=== PATIENT | female | born 1985 | race Caucasian/White ===

== ENCOUNTER 2017-03-07 20:26 | Emergency (ER) | payer MEDICAID ==
[~2017-03-07] VITALS: Ht 167.6 cm; Wt 64.0 kg
[2017-03-07 20:28] VITALS: Ht 167.6 cm; Wt 64.0 kg
--- NOTE | 2017-03-07 23:01 | ERD ---
ER Documentation Chief Complaint Date/Time DATE: 03/07/17 TIME: 22:59 Chief Complaint 6 weeks , pelvic pain, back pain HPI 6 week with vaginal bleeding and back pain that started last night. pt reports bleeding with urination. not using a claus-pad, denies dysuria. denies N/ V C2D4-56 ROS All systems reviewed and are negative except as per history of present illness. Allergies Allergies: Coded Allergies: No Known Allergy (Unverified , 03/07/17) PMhx/Soc Medical and Surgical Hx: pt denies Medical Hx, pt denies Surgical Hx Hx Alcohol Use: No Hx Substance Use: No Hx Tobacco Use: No Smoking Status: Never smoker Physical Exam Vitals Vital Signs Date Time Temp Pulse Resp B/P Pulse Ox O2 Delivery O2 Flow Rate FiO2 03/07/17 20:28 98.0 85 20 111/62 100 Physical Exam Const: Well-nourished well-appearing well-hydrated female no acute distress Head: Eyes: ENT: Normal External Ears, Nose and Mouth Mucous membranes moist Neck: . Resp: Cardio: Abd: Soft, non tender, non distended.No pelvic tenderness, no CVA tenderness. Skin: Back: Ext: Neur: Awake and alert Psych: Normal Mood and Affect Result Diagram: 03/07/17 9714 Results 24 hrs Laboratory Tests Test 03/07/17 23:39 White Blood Count 8.010^3/ul Red Blood Count 3.8410^6/ul Hemoglobin 12.5g/dl Hematocrit 37.5% Mean Corpuscular Volume 97.7fl Mean Corpuscular Hemoglobin 32.6pg Mean Corpuscular Hemoglobin Concent 33.3g/dl Red Cell Distribution Width 12.8% Platelet Count 07120^3/UL Mean Platelet Volume 10.5fl Neutrophils % 69.0% Lymphocytes % 23.5% Monocytes % 6.1% Eosinophils % 0.5% Basophils % 0.5% Nucleated Red Blood Cells % 0.0/100WBC Neutrophils # (Manual) 5.510^3/ul Lymphocytes # 1.910^3/ul Monocytes # 0.510^3/ul Eosinophils # 0.010^3/ul Basophils # 0.010^3/ul Nucleated Red Blood Cells # 0.010^3/ul Urine Color YELLOW Urine Clarity SLIGHTLY CLOUDY Urine pH 5.0 Urine Specific [place] 1.032 Urine Ketones TRACEmg/dL Urine Nitrite NEGATIVEmg/dL Urine Bilirubin NEGATIVEmg/dL Urine Urobilinogen 2+mg/dL Urine Leukocyte Esterase NEGATIVELeu/ul Urine Microscopic RBC 7/HPF Urine Microscopic WBC 1/HPF Urine Squamous Epithelial Cells FEW/HPF Urine Calcium Oxalate Crystals FEW/HPF Urine Mucus MANY/HPF Urine Hemoglobin NEGATIVEmg/dL Urine Glucose NEGATIVEmg/dL Urine Total Protein NEGATIVEmg/dl Beta HCG, Quantitative 3664.7mIU/ml Urinalysis negative for evidence of infection, U hCG normal for a 6 week WBC is normal no evidence of anemia or acute infection.. Procedures/MDM PROCEDURE: ULTRASOUND OBSTETRICAL CLINICAL INDICATION: 31-year-old female with vaginal bleeding. TECHNIQUE: Multiple sonographic images of the pelvis were obtained. The images were reviewed on a PACS workstation. COMPARISON: None. FINDINGS: There is a single intrauterine gestation. There is a large subchorionic hemorrhage measuring approximately 0.5 x 1.8 x 1.3 cm. The mean sac diameter is 0.89 cm. This yields an estimated gestational age of 5 weeks and 3 days. The estimated date of delivery is November 04, 2017. There is a yolk sac present. There is no evidence for pole. There is no evidence for free fluid. The right ovary has a normal echotexture and measures 2.5 x 1.4 x 2.0 cm. The left ovary has a normal echotexture and measures 2.8 x 1.9 x 1.9 cm. There is normal flow to the ovaries bilaterally. No adnexal masses are noted. IMPRESSION: Single early intrauterine gestation of approximately 5 weeks 3 days with large subchorionic hemorrhage and without evidence for a pole at this time. Clinical correlation and follow-up ultrasound is indicated. Electronically viewed and signed by .Adams Santamaria MD, MD on 03/08/2017 00This 31-year-old female presents to emergency department for evaluation of vaginal bleeding. Patient is 6 weeks reports bleeding started today on toilet, she does not need to use a claus-pad she is experiencing bleeding with wiping. -00. Threatened miscarriage evaluated with laboratory testing, beta quant normal for 6 week . Hemoglobin and hematocrit stable WBC without evidence of infection or anemia. Obstetrical ultrasound as read by radiologist single early intrauterine gestation of approximately 5 weeks 3 days with a large subchorionic hemorrhage and without evidence for a pole at this time. Clinical correction and follow-up ultrasound is indicated. Patient is stable with no new complaints during ER course, clinically there is no current evidence of any other emergent condition appearing to require further evaluation or hospitalization. Patient will be discharged home instructed to return in 48 hours for repeat lab and ultrasound. I feel the patient is stable for discharge at this time. I have discussed results, examination findings, the treatment plan with the patient and family present prior to discharge. Indications for emergent reevaluation, side effects of medication were also discussed. All questions were answered. Patient verbalizes understanding and agrees with plan of care. Departure Patient Instructions: Possible Miscarriage (Threatened ) Referrals: INFORMATION SECURITY ENGINEER REFERRAL LIST Additional Instructions: Thank you for for coming to [facility] for your care today. Please ask your nurse or provider if you have questions about your care today and do not leave until all your questions have been answered. Please use any medications given as directed and follow-up with your doctor (or the doctor you were referred to) in the next 2-3 days. If you do not have a primary care doctor you may follow up at the [facility] (listed below). You may also use motrin and tylenol as needed for fever and/or pain unless instructed otherwise by your provider or nurse. Indications for more urgent follow-up have been discussed, but you may return to the Emergency Department at ANY time for any worrisome or worsening symptoms. If you have abdominal pain, please know that no test or exam you received is perfect and you should follow up within 8 hours for continued pain. If you had any imaging studies today, such as an X-Ray or CT Scan, these studies will be reviewed later by a radiologist. You will be called if there are important findings that were not identified today, so make sure the contact information you provided at registration is correct. If you received any narcotic pain control medicine today, such as Vicodin, Morphine or Dilaudid, your coordination and judgment may be affected for a number of hours. Please do not drive or operate heavy machinery, and you may want someone to assist you at home. If you were given a prescription for narcotic medication, be aware that it is very addictive- use sparingly and only if necessary. PATTI HE Mar 07, 2017 23:01
[2017-03-07 23:53] LABS: BASOPHILS % 0.5 % (0.0-2.0); EOSINOPHILS % 0.5 % (0.0-7.0); HEMATOCRIT 37.5 % (37.0-47.0); HEMOGLOBIN 12.5 g/dl (12.0-16.0); LYMPHOCYTES # 1.9 10^3/ul (0.8-2.9); LYMPHOCYTES % 23.5 % (15.0-51.0); MEAN CORPUSCULAR HEMOGLOBIN 32.6 pg (29.0-33.0); MEAN CORPUSCULAR HGB CONC 33.3 g/dl (32.0-37.0); MEAN CORPUSCULAR VOLUME 97.7 fl (82.0-101.0); MEAN PLATELET VOLUME 10.5 fl (7.4-10.4); MONOCYTE # 0.5 10^3/ul (0.3-0.9); MONOCYTES % 6.1 % (0.0-11.0); PLATELET COUNT 297 10^3/UL (140-415); RED BLOOD COUNT 3.84 10^6/ul (4.20-5.40); RED CELL DISTRIBUTION WIDTH 12.8 % (11.5-14.5)
--- NOTE | 2017-03-08 00:07 | RADRPT ---
PROCEDURE: ULTRASOUND OBSTETRICAL CLINICAL INDICATION: 31-year-old female with vaginal bleeding. TECHNIQUE: Multiple sonographic images of the pelvis were obtained. The images were reviewed on a PACS workstation. COMPARISON: None. FINDINGS: There is a single intrauterine gestation. There is a large subchorionic hemorrhage measuring approxi mately 0.5 x 1.8 x 1.3 cm. The mean sac diameter is 0.89 cm. This yields an estimated gestational ag e of 5 weeks and 3 days. The estimated date of delivery is November 04, 2017. There is a yolk sac present. There is no evidence for pole. There is no evidence for free fluid. The right ovary has a n ormal echotexture and measures 2.5 x 1.4 x 2.0 cm. The left ovary has a normal echotexture and measu res 2.8 x 1.9 x 1.9 cm. There is normal flow to the ovaries bilaterally. No adnexal masses are note d. IMPRESSION: Single early intrauterine gestation of approximately 5 weeks 3 days with large subchorionic hemorrha ge and without evidence for a pole at this time. Clinical correlation and follow-up ultrasound is indicated. .Adams Santamaria MD, Date Time Electronically viewed and signed by .Adams Santamaria MD, MD on 03/08/2017 00:07 .M/
[2017-03-08 00:22] LABS: ADD UMIC NO; UR ASCORBIC ACID 40 mg/dL (NEGATIVE); UR BILIRUBIN (Dip) NEGATIVE (NEGATIVE); UR BLOOD (Dip) NEGATIVE (NEGATIVE); UR CLARITY SLIGHTLY CLOUDY (CLEAR); UR COLOR YELLOW (YELLOW); UR GLUCOSE (Dip) NEGATIVE (NEGATIVE); UR KETONES (Dip) TRACE mg/dL (NEGATIVE); UR LEUKOCYTE ESTERASE (Dip) NEGATIVE Leu/ul (NEGATIVE); UR MUCUS MANY /HPF (NONE SEEN); UR NITRITE (Dip) NEGATIVE (NEGATIVE); UR RBC 7 /HPF (0-5); UR SPECIFIC GRAVITY (Dip) 1.032 (1.003-1.030); UR SQUAMOUS EPITHELIAL CELL FEW /HPF (FEW); UR TOTAL PROTEIN (Dip) NEGATIVE (NEGATIVE); UR UROBILINOGEN (Dip) 2+ mg/dL (NEGATIVE)
[2017-03-08 01:32] VITALS: BP 115/68; PULSE 72; RESP 16; TEMP 98.3
[2017-03-17] MEDS ORDERED: ACET500C5 PO (23:18)
[2017-03-17] MEDS ORDERED: CEPH-443 PO (23:18)
== END 2017-03-08 01:37 | disposition home or self-care (01) ==
LOC: FTE 20:26
DX: O20.0 Threatened abortion (principal); R10.2 Pelvic and perineal pain; Z3A.01 Less than 8 weeks gestation of pregnancy
CPT/HCPCS: 36415; 76801; 76817; 81001; 84702; 85025; Z7502; 81003

== ENCOUNTER 2017-03-21 17:04 | Emergency (ER) | payer MEDICAID ==
[~2017-03-21] VITALS: Ht 160 cm; Wt 65.5 kg
[~2017-03-21 17:04] MED LIST: ACET500C5 PO; CEPH-443 PO
[2017-03-21 17:08] VITALS: Ht 160 cm; Wt 65.5 kg
--- NOTE | 2017-03-21 18:49 | RADRPT ---
PROCEDURE: US Pelvis. CLINICAL INDICATION: Vaginal bleeding TECHNIQUE: Multiple sonographic images of the pelvis were obtained utilizing a transabdominal and endovaginal technique. The images were reviewed on a PACS workstation. COMPARISON: 03/17/2017 FINDINGS: Uterus: Normal in size, contour and echogenicity with no evidence for myometrial masses. Size is est imated at 7 x 5.7 x 3.7 cm. Cervix: No abnormalities of significance are seen. Endometrium: Normal in thickness; 4.4 mm. Normal blood flow on Doppler interrogation. Previously se en and gestational sac and yolk sac are no longer present consistent with interval spontaneous abort ion Right ovary / adnexa: The ovary is not visualized. There is no evidence of adnexal mass or free fl uid. Left ovary/adnexa: Normal in size estimated at 2.7 x 2.1 x 1.3 cm. No evidence for solid masses, no rmal blood flow on Doppler interrogation. Cul-de-sac: No evidence of free fluid. RPTAT:HJJR IMPRESSION: 1. Previously demonstrated intrauterine gestational sac and yolk sac are no longer present consisten t with interval miscarriage, the endometrium is normal in thickness without retained products of con ception or blood clots to help explain the patient's provided history. 2. Unremarkable left ovary; the right ovary is not visualized. Physician Sumit Date Time Electronically viewed and signed by Physician Sumit on 03/21/2017 18:48 /
[2017-03-21] MEDS ORDERED: HYDR-902 PO (18:54)
[2017-03-21] MEDS ORDERED: DOXY100T20 PO (18:54)
--- NOTE | 2017-03-21 18:56 | ERD ---
ER Documentation Chief Complaint Date/Time DATE: 03/21/17 TIME: 18:54 Chief Complaint dysuria and pelvic pain x 2 weeks, requesting d&c, 6 weeks HPI This is a 31-year-old female who is seen here twice before where she had an irregular shaped gestational and yolk sac consistent with miscarriage. She was here on 03/17/2017 with the above. The patient says she is continued to have worsening bleeding passing clots. Bleeding is mild to moderate today. Cramps are better today. No fever no back pain. No dizziness no syncope. Patient is a . Pain is crampy nonradiating ROS All systems reviewed and are negative except as per history of present illness. Medications Home Meds Active Scripts Hydrocodone/Acetaminophen ([place] 10-325 Tablet) 1 Each Tablet, 1 TAB PO Q6H Y for PAIN, #20 TAB Prov:LISA PRATTSTOLOS A. DO 03/21/17 Doxycycline Hyclate* (Doxycycline Hyclate*) 100 Mg Tablet.dr, 100 MG PO BID for 5 Days, TAB Prov:VANESA PRATT DO 03/21/17 Acetaminophen* (Tylophen*) 500 Mg Capsule, 1 CAP PO Q6H Y for PAIN AND OR ELEVATED TEMP, #20 CAP Prov:DOMONIQUE LIN PA-C 03/17/17 Cephalexin* (Keflex*) 500 Mg Capsule, 500 MG PO TID for 7 Days, CAP Prov:DOMONIQUE LIN PA-C 03/17/17 Allergies Allergies: Coded Allergies: No Known Allergy (Unverified , 03/17/17) PMhx/Soc Medical and Surgical Hx: pt denies Medical Hx, pt denies Surgical Hx History of Surgery: No Anesthesia Reaction: No Hx Neurological Disorder: No Hx Respiratory Disorders: No Hx Cardiac Disorders: No Hx Psychiatric Problems: No Hx Alcohol Use: No Hx Substance Use: No Hx Tobacco Use: No FmHx Family History: No coronary disease Physical Exam Vitals Vital Signs Date Time Temp Pulse Resp B/P Pulse Ox O2 Delivery O2 Flow Rate FiO2 03/21/17 17:08 98.3 78 18 100/53 100 Physical Exam Const: Well-developed, well-nourished Head: Atraumatic, normocephalic Eyes: Normal Conjunctiva, PERRLA, EOMI, normal sclera, no nystagmus ENT: Normal External Ears, Nose and Mouth, moist mucus membranes. Neck: Full range of motion. No meningismus, no lymphadenopathy. Resp: Clear to auscultation bilaterally, no wheezing, rhonchi, rales Cardio: Regular rate and rhythm, no murmurs, S1 S2 present Abd: Soft, diffuse mild pelvic tenderness non distended. Normal bowel sounds, no guarding or rebound, no pulsitile abdominal masses or bruits Skin: No petechiae or rashes, no ecchymosis , no maculopapular rash Back: No midline or flank tenderness Ext: No cyanosis, or edema, FROM x 4, normal inspection, neurovascularly intact x 4 Neur: Awake and alert, STR 5/5 x 4, sensation intact x 4, no focal findings, cerebellum intact Psych: Normal Mood and Affect Procedures/MDM PROCEDURE: US Pelvis. CLINICAL INDICATION: Vaginal bleeding TECHNIQUE: Multiple sonographic images of the pelvis were obtained utilizing a transabdominal and endovaginal technique. The images were reviewed on a PACS workstation. COMPARISON: 03/17/2017 FINDINGS: Uterus: Normal in size, contour and echogenicity with no evidence for myometrial masses. Size is estimated at 7 x 5.7 x 3.7 cm. Cervix: No abnormalities of significance are seen. Endometrium: Normal in thickness; 4.4 mm. Normal blood flow on Doppler interrogation. Previously seen and gestational sac and yolk sac are no longer present consistent with interval spontaneous Right ovary / adnexa: The ovary is not visualized. There is no evidence of adnexal mass or free fluid. Left ovary/adnexa: Normal in size estimated at 2.7 x 2.1 x 1.3 cm. No evidence for solid masses, normal blood flow on Doppler interrogation. Cul-de-sac: No evidence of free fluid. RPTAT:HJJR IMPRESSION: 1. Previously demonstrated intrauterine gestational sac and yolk sac are no longer present consistent with interval miscarriage, the endometrium is normal in thickness without retained products of conception or blood clots to help explain the patient's provided history. 2. Unremarkable left ovary; the right ovary is not visualized. Yaniv Rankin Physician Date Time Electronically viewed and signed by Yaniv Rankin Physician on 03/21/2017 18:48 JR/ CC: VANESA PRATT DO Patient has a complete miscarriage. Will cover with doxycycline and pain control. She is given warning signs for which to return Departure Diagnosis: Primary Impression: Complete miscarriage Condition: Stable Patient Instructions: Miscarriage VANESA PRATT DO Mar 21, 2017 18:56
[2017-03-21 19:03] VITALS: BP 112/60; RESP 18; TEMP 98.6
== END 2017-03-21 19:04 | disposition home or self-care (01) ==
LOC: FTE 17:04
DX: O03.9 Complete or unspecified spontaneous abortion without complication (principal); R10.2 Pelvic and perineal pain
CPT/HCPCS: 36415; 76801; 76817; 84702; 86900; 86901; Z7502

== ENCOUNTER 2017-09-26 18:56 | Emergency (ER) | END 2017-09-27 01:23 | disposition home or self-care (01) ==

== ENCOUNTER 2017-12-24 18:02 | Outpatient (CLI) | END 2017-12-24 22:00 | disposition home or self-care (01) ==

== ENCOUNTER 2017-12-24 22:28 | Emergency (ER) | END 2017-12-25 02:01 | disposition home or self-care (01) ==

== ENCOUNTER 2018-03-05 02:19 | Inpatient (IN) | END 2018-03-07 13:56 | disposition home or self-care (01) | DRG 775 ==